=== PATIENT | female | born 1995 | race African-American/Black ===

== ENCOUNTER 2016-09-21 13:33 | Emergency (ER) | payer OTHER ==
[~2016-09-21] VITALS: Ht 170.2 cm; Wt 54.4 kg
[~2016-09-21 13:33] MED LIST: ACETAMINOPHEN-1 EAC1 PO; ACETAMINOPHEN325 M1 PO; AUGMENTIN 875875 M1 PO; COLACE100 MG PO; FERROUS SULFAT325 M1 PO; FLONASE 0.05%50 MCG NASAL; LORTABELXR PO; MEDROLDOSEPACK PO; NAPROSYN500 MG PO; NOHOMEMEDICATIONS; NORFLEX100 MG PO; PENICILLIN VK500 M1 PO; PHENERGAN 25 MG25 M1 PO; TESSALON PERLE100 MG PO; TRAMADOL 50 MG50 MG PO; birth control
[2016-09-21] MEDS ORDERED: AMETHIA 0.15-01 EAC1 PO (14:49)
[2016-09-21 15:30] VITALS: BP 122/70
== END 2016-09-21 15:30 | disposition home or self-care (01) ==
LOC: ER 13:33
DX: J45.909 Unspecified asthma, uncomplicated (principal); J02.9 Acute pharyngitis, unspecified; F10.99 Alcohol use, unspecified with unspecified alcohol-induced disorder

== ENCOUNTER 2017-06-12 10:57 | Emergency (ER) | payer OTHER ==
[~2017-06-12] VITALS: Ht 170.2 cm; Wt 71.2 kg
[~2017-06-12 10:57] MED LIST changes: +AMETHIA 0.15-01 EAC1 PO
[2017-06-12 11:21] LABS: URINE BILIRUBIN NEGATIVE (Negative); URINE BLOOD NEGATIVE (Negative); URINE CLARITY CLEAR; URINE COLOR YELLOW; URINE GLUCOSE-RANDOM* NEGATIVE (Negative); URINE KETONES NEGATIVE (Negative); URINE LEUKOCYTES TRACE (Negative); URINE NITRITE NEGATIVE (Negative); URINE PROTEIN (DIPSTICK) NEGATIVE (Negative); URINE UROBILINOGEN 0.2 E.U./dl (0.2-1.0)
[2017-06-12 14:30] LABS: WBC 10.5 thou/uL (4.0-11.0)
[2017-06-12 14:32] LABS: BASOPHILS 1.3 % (0.0-2.0); EOSINOPHILS 2.5 % (0.0-3.0); HEMATOCRIT 34.9 % (37.0-47.0); LYMPHOCYTES 20.7 % (24.0-44.0); MCHC 31.5 g/dL (28.0-37.0); PLATELET COUNT 357 thou/uL (150-400); POLYS 66.5 % (36.0-66.0); RBC 4.98 mil/uL (4.20-5.00); RDW 19.2 % (10.5-14.5)
[2017-06-12] MEDS ORDERED: COMPAZINE10 MG PO ×2 (14:39→15:05)
[2017-06-12 14:54] LABS: CALCIUM 8.3 mg/dL (8.5-10.1); POTASSIUM 3.7 mmol/L (3.5-5.1)
[2017-06-12 15:09] VITALS: BP 134/71
[2017-06-12 15:22] LABS: ANISOCYTOSIS 2+; MICROCYTES 1+
[2017-06-12 15:23] LABS: OVALOCYTES 1+; TARGET CELLS OCCASIONAL
== END 2017-06-12 15:10 | disposition home or self-care (01) ==
LOC: ER 10:57
PROVIDERS: Emergency Medicine; Nurse Practitioner Family
DX: R51 Headache (principal); R11.0 Nausea; J45.909 Unspecified asthma, uncomplicated; Z91.013 Allergy to seafood

== ENCOUNTER 2018-06-26 22:15 | Emergency (ER) | payer OTHER ==
[~2018-06-26] VITALS: Ht 170.2 cm; Wt 81.7 kg
[~2018-06-26 22:15] MED LIST changes: +COMPAZINE10 MG PO
[2018-06-27] MEDS ORDERED: TESSALON PERLE100 MG PO (00:07)
[2018-06-27] MEDS ORDERED: VENTOLIN HFA 1818 GM INH (00:11)
[2018-06-27 00:18] VITALS: BP 90/63
== END 2018-06-27 00:21 | disposition home or self-care (01) ==
LOC: ER 22:15
DX: J06.9 Acute upper respiratory infection, unspecified (principal); J45.909 Unspecified asthma, uncomplicated; Z91.013 Allergy to seafood; Z86.2 Personal history of diseases of the blood and blood-forming organs and certain disorders involving the immune mechanism

== ENCOUNTER 2018-09-07 16:07 | Emergency (ER) | payer OTHER ==
[~2018-09-07] VITALS: Ht 170.2 cm; Wt 81.7 kg
[2018-09-07 16:07] VITALS: BP 115/72
[~2018-09-07 16:07] MED LIST changes: +VENTOLIN HFA 1818 GM INH
[2018-09-07] MEDS ORDERED: AMOXICILLIN 50500 MG PO (16:47)
[2018-09-07] MEDS ORDERED: MOBIC7.5 MG PO (16:47)
== END 2018-09-07 17:00 | disposition home or self-care (01) ==
LOC: ER 16:07
DX: H66.92 Otitis media, unspecified, left ear (principal); J45.909 Unspecified asthma, uncomplicated; Z91.013 Allergy to seafood; Z86.2 Personal history of diseases of the blood and blood-forming organs and certain disorders involving the immune mechanism

== ENCOUNTER 2019-01-19 16:30 | Emergency (ER) | payer OTHER ==
[~2019-01-19] VITALS: Ht 170.2 cm; Wt 95.3 kg
[~2019-01-19 16:30] MED LIST changes: +AMOXICILLIN 50500 MG PO; +MOBIC7.5 MG PO
[2019-01-19] MEDS ORDERED: ZOFRAN ODT4 MG PO (17:31)
[2019-01-19 17:48] VITALS: BP 122/70
== END 2019-01-19 17:15 | disposition home or self-care (01) ==
LOC: ER 16:30
DX: R11.2 Nausea with vomiting, unspecified (principal); J45.909 Unspecified asthma, uncomplicated; Z86.2 Personal history of diseases of the blood and blood-forming organs and certain disorders involving the immune mechanism; Z91.013 Allergy to seafood